=== PATIENT | female | born 2000 | race Two or more races ===

== ENCOUNTER 2025-01-17 07:01 | Day surgery (SDC) | payer OTHER ==
[2025-01-12 14:19] LABS: ALBUMIN 3.7 gm/dL (3.4-5.0); BILIRUBIN TOTAL 0.29 mg/dL (0.3-1.2); CALCIUM 8.4 mg/dL (8.5-10.1); CREATININE SERUM 0.62 mg/dL (0.55-1.02); GFR 120.37; GLOBULINA 3.2 G/DL (2.4-3.5); POTASSIUM 3.88 mEq/L (3.5-5.1); TOTAL PROTEIN 6.9 gm/dL (6.4-8.2)
[2025-01-12 16:22] LABS: PH,URINE 5.5 (5.0-8.0); URINE APPEARANCE Clear; URINE BACTERIA 8.5 uL (0.0-1933); URINE BILIRRUBIN Negative (NEGATIVE); URINE BLOOD Negative; URINE COLOR Yellow; URINE EPITHELIAL CELLS 7.7 uL (0.0-38.8); URINE GLUCOSE Negative (NEGATIVE); URINE KETONE Negative (NEGATIVE); URINE LEUKOCYTE Negative; URINE NITRATE Negative; URINE PROTEIN Negative (NEGATIVE); URINE RBC 3.9 uL (0.0-20.8); URINE UROBILINOGEN 0.2 E.U./dl; URINE WBC 2.3 uL (0.0-23.2)
[2025-01-12 16:23] LABS: PARTIAL THROMBOPLASTIN TIME 32.3 SECONDS (22.0-34.0); PROTHROMBIN TIME 10.9 SECONDS (9.0-11.5)
[2025-01-17] MEDS ORDERED: CEFAZOLIN SODIUM 1,000 MG VIAL ONE (08:55)
[2025-01-17] MEDS ORDERED: BUPIVACAINE HCL/Mpf 0.5% 10ML VIAL ONE (11:35)
== END 2025-01-17 14:40 | disposition home or self-care (01) ==
LOC: CIR.AMB 07:01
PROVIDERS: ATTEND Orthopaedic Surgery Hand Surgery
DX: D21.12 Benign neoplasm of connective and other soft tissue of left upper limb, including shoulder (principal); R22.32 Localized swelling, mass and lump, left upper limb